=== PATIENT | female | born 1930 | race Caucasian/White ===

== ENCOUNTER → 2016-10-27 | Outpatient (CLI) | payer OTHER, MEDICARE ==
[~2016-10-27] MED LIST: ACCUNEB SO1.25 MG/1 INH; ADVAIR HFA 230M12 GM INH; ADVAIR HFA115 MCG/21 INH; ALBUTEROL2.5 MG/31 INH; ALLERGY10 M1 PO; ALPHAGAN P10 ML OP; ALPHAGAN P10 ML OPHTHALMIC; ANTIVERT25 MG PO; APAP500 PO; ASPIRIN EC81 M1 PO; AUGMENTIN 875875 MG PO; BLADDER MED; BUTRANS1 EAC1 TD; CALCIUM 500 +1 EAC5 PO; CARAFATE1 GM PO; CEFDINIR300 MG PO; CENTRUM SILVER1 EAC4 PO; CIPRO250 M1 PO; CLARITIN10 MG PO; COMPAZINE10 M1 PO; CYMBALTA60 MG PO; DALMANE15 MG PO; DIPHENHYDRAMINE25 M3 PO; FLURAZEPAM 15 M15 M1 PO; GLUCOSAMINE CH1 EAC7 PO; HYDROCODON-ACE1 EAC7 PO; HYDROCODONE-AP1 EAC6 PO; HYSINGLA ER20 MG PO; LACTINEX CHEWA1 EACH PO; LUMIGAN2.5 M1 OPHTHALMIC; MECLIZINE HCL12.5 MG PO; MELOXICAM7.5 MG PO; MIRTAZAPINE7.5 MG PO; MOBIC7.5 MG PO; MS CONTIN15 MG PO; MUCINEX TA600 MG/TA2 PO; MYBETRIQ PO; MYRBETRIQ50 MG PO; NABUMETONE 500500 M1 PO; NAPROSYN500 MG PO; NEURONTIN 300300 M1 PO; NITROFURANTOIN25 MG PO; NORCO 5-325 TA1 EACH PO; ONDANSETRON HCL4 M2 PO; OSELB75 PO; PREDNISONE 10 M10 MG PO; PRESERVISION T1 EACH PO; PRILOSEC 20 MG20 MG PO; PROAIR HFA8.5 GM INH; RELAFEN500 MG PO; REMERON15 MG PO; TRAMADOL 50 MG50 MG PO; TRAMADOL HCL50 MG PO; TUMS PO; VITAMIN D3400 UNI1 PO; XALATAN2.5 ML OPHTHALMIC; XANAX 0.5 MG0.5 M1 PO; XANAX 0.5 MG0.5 MG PO; ZANTAC 150MG T150 MG PO; ZOLOFT 50 MG TA50 M1 PO; ZOLOFT25 MG PO
== END ==
LOC: RAD 14:36
DX: M47.896 Other spondylosis, lumbar region (principal); M25.551 Pain in right hip; M54.9 Dorsalgia, unspecified

== ENCOUNTER → 2017-02-03 | Outpatient (CLI) | payer OTHER, MEDICARE ==
[~2017-02-03] VITALS: Ht 167.6 cm; Wt 63.6 kg
[~2017-02-03] MED LIST changes: +MOVANTIK25 MG PO
--- NOTE | ~2017-02-03 | HPC ---
[facility] [place] [place] [address] PAIN MANAGEMENT CONSULTATION Name: SUSAN SHARP Room #: REG NAMRATA Jerrell.#: [id number] Admission: 02/03/17 Attend Phys: Wolf Gaston DO Discharge: Date of : 30 Report #: [id number] THIS REPORT FOR: //name// CC: Wolf Cristobal MD DATE OF SERVICE: 02/03/2017 DATE OF SERVICE: 02/03/2017. REFERRING PHYSICIAN: Dr. Crystal Cristobal. CHIEF COMPLAINT: Neck pain, head pain, low back pain, bilateral lower extremity pain. HISTORY OF PRESENT ILLNESS: As you know, patient is an 86-year-old female with generalized pain disorder. She continues to describe chronic neck pain, head pain due to severe arthritic changes in the cervical region. She is also experiencing low back pain and bilateral lower extremity pain due to spinal stenosis. She returns today in followup visit for medication management, is placing pain score 10/10, though she indicates today that she was pain free and virtually pain free for the past month. She has only had a change in symptoms starting today. She is denying any injury or trauma, family member present today states the patient has been doing much better with her increase in medication at the last visit and that they recommend continuation of this therapy. Despite the pain level reported 10/10 today. The family member present today has been monitoring the patient and she has been doing better. Her activities are more improved and she is having no side effects. ALLERGIES: No known drug allergies. CURRENT MEDICATIONS: Alprazolam 0.5 mg 3 times a day, Butrans patch 15 mcg q. week, tramadol 50 mg 3 times a day p.r.n., calcium carbonate 1 tab per day, one drop each eye per day, meclizine 12.5 mg 3 times a day, Myrbetriq 50 mg once a day, nitrofurantoin 25 mg once a day, mirtazapine 15 mg p.o. at bedtime, sertraline 25 mg per day, Alphagan one drop each eye per day, albuterol 2 puffs q. 4 hours p.r.n., acetaminophen 500 mg dose 2 tabs p.o. every day, omeprazole 20 mg per day. SOCIAL HISTORY: The patient denies tobacco, alcohol, IV or illicit drug use. She is retired. She lives independently. She is accompanied by her daughter who is providing significant amount of the patient's history today. IMAGING: [place] [address] PAIN MANAGEMENT CONSULTATION Name: SUSAN SHARP PAUL Room #: REG NAMRATA Kuhn#: [id number] Admission: 02/03/17 Attend Phys: Wolf Gaston DO Discharge: Date of : 30 Report #: [id number] PHYSICAL EXAMINATION: VITAL SIGNS: Blood pressure 130/79, pulse 82, respiratory rate 14, unlabored. The patient 93% on room air, height 5 feet 6 inches tall, weight 140.2 pounds, BMI calculated 22.6. GENERAL: Well developed, well nourished, well hydrated 86-year-old female appearing her stated age. Pain is rated at 10/10. HEENT: Normocephalic, atraumatic. Visual deficits noted to be progressing. EXTREMITIES: Show no clubbing, no cyanosis, no edema. MUSCULOSKELETAL: The patient has some palpatory tenderness over the paraspinal musculature cervical spine. Cervical provocation testing with extension and lateral flexion and rotation exacerbates neck pain with moderate restriction of motion. There is some palpatory tenderness over the thoracic and lumbar area. No spinous process tenderness. ASSESSMENT: 1. Cervicogenic headache. 2. Third occipital neuralgia. 3. Tension headache. 4. Chronic axial back pain. 5. Lumbar spinal stenosis. 6. Chronic lumbar radiculopathy. 7. Chronic intractable pain. PLAN: 1. The patient has returned today in followup visit having been advised by neurosurgery. She now come out over TLSO brace. She has discontinued the use of the brace except for when she is up and walking about, they have advised her that her burst fracture at L1 appears to be improved. They are suggesting she can utilize the brace only on an as needed basis. We do not have any imaging studies, but we will defer to the Neurosurgery team further suggestions of treatment options for this burst fracture. 2. In regards to the patient's axial low back pain appears to be related to facet arthropathy, recommend conservative treatment. In this case, I do not feel interventional treatments are necessary, nor is the pain greater enough in the area to precipitate any need for more aggressive treatment. 3. In regards to patient's cervical spondylosis. Treatment appears to be working well, despite this reported 10/10 pain today. It is noted the patient's pain intensifies with changes in weather, as the new whether system approaching which exacerbates some arthritic symptoms in most patients. I believe this is the case today. Changes in her medical therapy would not be recommended at this time except to increase her use of Aleve from 1 tablet twice a day to 2 tabs twice a day. This will improve the analgesic benefit and provide improvement and anti-inflammatory effects. 4. The patient was provided a refill prescription of Butrans patch 15 mcg patch 1 patch per week. I have given the patient 4 patches releases of today, 4 weeks from today, 8 weeks from today, 3 months' worth of medication. [facility] [address] [place] [address] PAIN MANAGEMENT CONSULTATION Name: SUSAN SHARP PAUL Room #: REG [facility] M.R.#: [id number] Admission: 02/03/17 Attend Phys: Wolf Gaston DO Discharge: Date of : 30 Report #: [id number] 5. The patient was provided a prescription of Movantik 25 mg dose 1 tab p.o. q.a.m., #30. The patient is having increase in constipation with increasing of the medication at last visit. This medication specifically designed to decrease opioid-induced constipation, the source the patient's increased constipation issues. She can initiate this medication at her earliest convenience. I did advise the patient that this medication could be quite costly, but if her symptoms do not improve with [id number] medications such as the one she is taking now, I would recommend the Movantik. 6. We will see the patient back in followup visit 3 months from today for medication management, earlier if changes need to be addressed. By: [id number] Wolf Gaston DO /nt
[2017-02-03 12:36] VITALS: BP 138/79
== END | disposition home or self-care (01) ==
LOC: PAIN 07:07
DX: M54.81 Occipital neuralgia (principal); M54.16 Radiculopathy, lumbar region; M54.9 Dorsalgia, unspecified; M48.06 Spinal stenosis, lumbar region; G89.29 Other chronic pain; G44.209 Tension-type headache, unspecified, not intractable

== ENCOUNTER 2017-03-24 16:33 | Emergency (ER) | payer OTHER, MEDICARE ==
[~2017-03-24] VITALS: Ht 167.6 cm; Wt 59.0 kg
[2017-03-24 18:52] LABS: ABSOLUTE NEUTROPHILS 6.5 thou/uL (1.4-8.2); BASOPHILS 1.1 % (0.0-2.0); EOSINOPHILS 5.7 % (0.0-3.0); HEMATOCRIT 42.4 % (37.0-47.0); LYMPHOCYTES 19.2 % (24.0-44.0); MCH 29.8 pg (26.0-34.0); MCHC 32.9 g/dL (28.0-37.0); MCV 90.5 fL (80.0-100.0); MONOCYTES 7.2 % (1.0-8.0); PLATELET COUNT 267 thou/uL (150-400); POLYS 66.8 % (36.0-66.0); RBC 4.68 mil/uL (4.20-5.00); RDW 12.5 % (10.5-14.5); WBC 9.7 thou/uL (4.0-11.0)
[2017-03-24 18:54] LABS: MANUAL DIFF NO
[2017-03-24 19:11] LABS: ANION GAP 6 mmol/L (7-16); BUN 7 mg/dL (7-18); CALCIUM 9.5 mg/dL (8.5-10.1); CHLORIDE 95 mmol/L (98-107); CO2 27 mmol/L (21-32); CREATININE 0.8 mg/dL (0.6-1.0); GLUCOSE 109 mg/dL (74-106); POTASSIUM 4.8 mmol/L (3.5-5.1); SODIUM 128 mmol/L (136-145)
[2017-03-24 19:17] LABS: ALBUMIN 3.9 g/dL (3.4-5.0); SGOT 21 U/L (15-37); SGPT 20 U/L (30-65); TOTAL BILIRUBIN 0.3 mg/dL (<0.1-1.0); TOTAL PROTEIN 7.6 g/dL (6.4-8.2)
[2017-03-24 19:30] LABS: ALKALINE PHOSPHATASE < 10 U/L (46-116)
[2017-03-24] MEDS ORDERED: VALIUM2 MG PO (20:49)
== END 2017-03-24 21:33 | disposition home or self-care (01) ==
LOC: ER 16:33
PROVIDERS: Nurse Practitioner Family
DX: R51 Headache (principal); M43.6 Torticollis; M47.812 Spondylosis without myelopathy or radiculopathy, cervical region; Z88.1 Allergy status to other antibiotic agents

== ENCOUNTER → 2017-04-22 | Outpatient (CLI) | payer OTHER, MEDICARE ==
[~2017-04-22] VITALS: Ht 167.6 cm; Wt 63.5 kg
[~2017-04-22] MED LIST changes: +CBD OIL; +VALIUM2 MG PO
[2017-04-22 09:13] VITALS: BP 103/53
== END | disposition home or self-care (01) ==
LOC: PAIN 07:21
DX: M47.22 Other spondylosis with radiculopathy, cervical region (principal); G44.209 Tension-type headache, unspecified, not intractable; G44.89 Other headache syndrome; H35.30 Unspecified macular degeneration; M54.9 Dorsalgia, unspecified; G89.29 Other chronic pain; M54.81 Occipital neuralgia; M19.90 Unspecified osteoarthritis, unspecified site; Z88.8 Allergy status to other drugs, medicaments and biological substances

== ENCOUNTER → 2017-12-15 | Outpatient (CLI) | payer OTHER, MEDICARE ==
[~2017-12-15] VITALS: Ht 167.6 cm; Wt 59.8 kg
--- NOTE | ~2017-12-15 | HPC ---
[facility] [address] [address] PAIN MANAGEMENT CONSULTATION Name: SUSAN SHARP Room #: REG NAMRATA Jerrell.#: [id number] Admission: 12/15/17 Attend Phys: Wolf Gaston DO Discharge: Date of : 30 Report #: [id number] THIS REPORT FOR: //name// CC: Joe Gaston DATE OF SERVICE: 12/15/2017 REFERRING PHYSICIAN: Joe Mansfield MD. CHIEF COMPLAINT: Neck pain, head pain, vision loss. HISTORY OF PRESENT ILLNESS: As you know, the patient is an 87-year-old female who returns today in followup visit for medication management for chronic neck pain and head pain. As you are aware, patient carries the diagnosis of cervicogenic headache, tension headaches and third occipital neuralgia. She is accompanied by her daughter who is providing most of the history today. We have started the patient on a Butrans patch and have escalated to 15 mcg with good efficacy. This in conjunction with Tylenol therapy works well in controlling pain. The patient's concern today is more about vision issues than it is about chronic pain issues. I am pleased that her pain has taken a secondary role in the patient's concerns today. She returns today for medication management. ALLERGIES: BACTRIM. CURRENT MEDICATIONS: Butrans, diazepam, alprazolam, calcium carbonate, latanoprost, meclizine, Myrbetriq, nitrofurantoin, mirtazapine, sertraline, Alphagan, albuterol, acetaminophen, and omeprazole. SOCIAL HISTORY: The patient denies tobacco, alcohol, IV or illicit drug use. She is retired. She remains living independently. She is unaccompanied today. IMAGING: No new imaging available. PQRS: The patient has known osteoarthritis. No rheumatoid arthritis. She is treated for vision issues and thus she is a fall risk. She has not had a fall in the past 3 months. She does use a roller walker for ambulation. She is not treated for hypertension and is not on any blood thinners. Pain score today is rated a 2/10. PHYSICAL EXAMINATION: VITAL SIGNS: Blood pressure 119/53, pulse 74, respiratory rate 12, unlabored. The patient is 96% on room air. Height 5 feet 6 inches tall, weight is 131.8 pounds, BMI calculated 21.3. GENERAL: Well-developed, well-nourished, well-hydrated, visually impaired, [facility] [address] [place] [address] PAIN MANAGEMENT CONSULTATION Name: SUSAN SHARP Room #: REG CL Hattie#: [id number] Admission: 12/15/17 Attend Phys: Wolf Gaston DO Discharge: Date of : 30 Report #: [id number] 87-year-old female, appearing her stated age. Pain is rated at 2/10. HEENT: Normocephalic, atraumatic. There are noted blepharitis injections of the sclerae bilaterally. Vision is reduced significantly. EXTREMITIES: Show no clubbing, no cyanosis, no edema. MUSCULOSKELETAL: Cervical provocation testing is once again met with increasing pain. Deep palpation over the right upper cervical region causes intensification of pain. There is crepitus noted with movement and mild restriction of motion. ASSESSMENT: 1. Cervicogenic headache. 2. Tension headache. 3. Third occipital neuralgia. 4. Cervical spondylosis without radicular symptoms. 5. Vision changes. 6. Opioid dependency. 7. Chronic intractable pain. PLAN: 1. The patient returns today in followup visit requesting refill on medications. Overall, the patient states medications are working beneficially. The combination of Butrans patch at 15 mcg and Tylenol worked very well for pain control, maintaining pain no greater than 2/10. This is the best pain score patient has had since we met her. I recommend continuing this therapy. She and her daughter denying any specific side effects to the Butrans and wishes to continue therapy. 2. The patient was provided prescription of Butrans 15 mcg patch, 1 patch per week. I have given the patient 4 releases of today, 4 weeks from today, 8 weeks from today, 3 months' worth of medication. 3. I have recommended the patient use Tylenol, no more than 2 tabs 3 times a day for any breakthrough pain. It comes to our attention today that family is concerned that the patient is taking these medications without need. I have sat and talked with the patient today for over 30 minutes of time describing that these medications are to be used for pain control, they are not to be used prophylactically. The patient states that she uses the medication consistently as she is concerned of pain return. This is not the way we should be taking these medications. I have advised her of such today. Family indicates that they will be controlling her Tylenol use more closely, so that we do not begin to experience any potential liver toxicities. 4. We will see the patient back in followup visit in 3 months for medication therapy. <ELECTRONICALLY SIGNED> By: Wolf Gaston DO 12/29/17 [id number] Wolf Gaston DO /nt
[2017-12-15 10:58] VITALS: BP 119/53
== END ==
LOC: PAIN 06:52
DX: M47.812 Spondylosis without myelopathy or radiculopathy, cervical region (principal); H54.7 Unspecified visual loss; R51 Headache; G89.4 Chronic pain syndrome; F11.20 Opioid dependence, uncomplicated

== ENCOUNTER → 2018-03-30 | Outpatient (CLI) | payer OTHER, MEDICARE ==
[~2018-03-30] VITALS: Ht 167.6 cm; Wt 59.0 kg
--- NOTE | ~2018-03-30 | HPC ---
[facility] [address] [address] PAIN MANAGEMENT CONSULTATION Name: SUSAN SHARP Room #: REG NAMRATA MDiandra.#: [id number] Admission: 03/30/18 Attend Phys: Wolf Gaston DO Discharge: Date of : 30 Report #: [id number] THIS REPORT FOR: //name// CC: Joe Gaston DATE OF SERVICE: 03/30/2018 REFERRING PHYSICIAN: Joe Mansfield MD CHIEF COMPLAINT: Neck pain and head pain. HISTORY OF PRESENT ILLNESS: As you know, the patient is an 87-year-old female who returns today in followup visit for medication management for chronic neck pain and chronic head pain. As you aware, the patient suffers from cervicogenic headache, tension headaches and third occipital neuralgia. She is accompanied by her daughter who is providing much of the history today. The patient apparently has been doing well with medications. She has been able to participate in her daily activities and is now placing pain score at no greater than 2/10. She states the pain that she is experiencing is dull and chronic in nature, tends to worsen towards the evening hours, but improves after rest and relaxation and the use of her Butrans patch. She returns today in followup visit for medication refills. She is denying any side effects of medication including somnolence, decreased mental acuity, disorientation or confusion. ALLERGIES: BACTRIM. CURRENT MEDICATIONS: Butrans patch, diazepam, alprazolam, calcium carbonate, latanoprost, meclizine, Myrbetriq, nitrofurantoin, mirtazapine, sertraline, Alphagan, albuterol, acetaminophen and omeprazole. SOCIAL HISTORY: The patient denies tobacco, alcohol, IV or illicit drug use. She lives in an assisted care facility. She is accompanied by her daughter who is present in room today. IMAGING: No new imaging available. PQRS: The patient has osteoarthritis of the neck, low back, bilateral hands, knees and hips. She does not suffer from rheumatoid arthritis. She is a fall risk, but has not had a fall in the last 3 months. She does use a roller walker for ambulation. She is treated for hypertension, but she is not on any blood thinners. Today's pain score 2/10. Pain impact score 15/70 indicating mild interference of daily activities secondary to pain. PHYSICAL EXAMINATION: [facility] [address] [place] [address] PAIN MANAGEMENT CONSULTATION Name: SUSAN SHARP Room #: REG NAMRATA Hattie#: [id number] Admission: 03/30/18 Attend Phys: Wolf aGston DO Discharge: Date of : 30 Report #: [id number] VITAL SIGNS: Blood pressure 126/57, pulse 66, respiratory rate 16, unlabored. The patient is 95% on room air. Height 5 feet 6 inches tall, weight 130 pounds and BMI calculated 21. GENERAL: Well-developed, well-nourished, well-hydrated, thin, 87-year-old female appearing stated age, placing current pain score 2/10. HEENT: Normocephalic and atraumatic. Pupils are reactive, but there is noted scleral injection, no icterus. Vision is reduced significantly. LUNGS: Clear, no wheeze, rhonchi or rales. CARDIOVASCULAR: Regular. No appreciable gallop, no rub. ABDOMEN: Soft and nontender. EXTREMITIES: Show no clubbing, no cyanosis and no edema. MUSCULOSKELETAL: The patient has palpatory tenderness over the cervical spine and no spinous process tenderness. Cervical provocation testing including extension, rotation and lateral flexion all intensify axial cervical pain. Deep palpation in the upper portion of the cervical region causes intensification of pain with radiation over the occiput. There is crepitus with movement. ASSESSMENT: 1. Third occipital neuralgia. 2. Tension headache. 3. Cervicogenic headache. 4. Cervical spondylosis without radicular symptoms. 5. Opioid dependency. 6. Myofascial pain. 7. Chronic intractable pain. PLAN: 1. The patient returns today in followup visit where we had a very long discussion today about the use of medication management. She feels medications are working beneficially reducing her pain from a typical 6-7/10 to a 2/10. She has been able to participate in all activities of daily living and is providing a low pain impact score today. I recommend we continue the medication as currently prescribed. She is not having side effects of somnolence, decreased mental acuity, disorientation, confusion or imbalance issues, which would be concerning in this patient given her visual dysfunction. The patient and her daughter today agreed to continue the therapy as currently prescribed as they do note good benefit. 2. The patient was provided a prescription of Butrans 15 mcg patch 1 patch q. 7 days. I have given the patient #4 patches with releases of today, 4 weeks from today, 8 weeks from today, 3 months' worth of medication. 3. The patient will submit to a buccal drug screen today. This is a portion of our monitoring program for our contracted pain patients who take chronic opioid medications. She is submitting to the buccal screen today for monitoring. 4. The patient can contact our clinic next week for the findings of her buccal screen. These will be available for her to seek information online or she can [address] [address] PAIN MANAGEMENT CONSULTATION Name: SUSAN SHARP PAUL Room #: REG NAMRATA Kuhn#: [id number] Admission: 03/30/18 Attend Phys: Wolf Gaston DO Discharge: Date of : 30 Report #: [id number] contact our clinic if she has questions or concerns. 5. We will see the patient back in followup visits in 3 months. By: [id number] Wolf Gaston DO /nt
[2018-03-30 10:51] VITALS: BP 126/57
== END ==
LOC: PAIN 03-24 07:02
DX: M47.22 Other spondylosis with radiculopathy, cervical region (principal); G89.4 Chronic pain syndrome; G44.209 Tension-type headache, unspecified, not intractable; M79.1 Myalgia; M79.2 Neuralgia and neuritis, unspecified; F11.20 Opioid dependence, uncomplicated